=== PATIENT | male | born 1975 | race Caucasian/White ===

== ENCOUNTER 2017-04-08 21:17 | Emergency (ER) | payer OTHER ==
[2017-04-08] MEDS ORDERED: LIDOCAINE 4%/TETRACAINE 0.5%/EPI 0.18% 5 ML TOPICAL SOLN TOP ONE (21:53)
[2017-04-08] MEDS ORDERED: DIPH/PERTUSS(ACELL)/TETANUS VAC/PF 0.5 ML SYR (>=10YO) IM ONE (21:53)
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
[2017-04-09] MEDS ORDERED: HYDROMORPHONE HCL INJ/PF 2 MG/ML AMPULE IV ONE (00:09)
[2017-04-09] MEDS ORDERED: LORAZEPAM INJ 2 MG/1 ML VIAL IV ONE (00:10)
[2017-04-09] MEDS ORDERED: IBUPROFEN 800 MG TABLET PO ONE (00:20)
[2017-04-09] MEDS ORDERED: CYCLOBENZAPRINE HCL 10 MG TABLET PO ONE (00:20)
[2017-04-09 00:51] VITALS: BP 144/94
--- NOTE | 2017-04-09 23:12 | EKG REPORT ---
SEVERITY:- BORDERLINE ECG - SINUS RHYTHM PROBABLE LEFT ATRIAL ABNORMALITY : Confirmed by: Michi Milton 09-Apr-2017 23:12:02
== END 2017-04-09 00:50 | disposition home or self-care (01) ==
LOC: ER 21:17
DX: S09.90XA Unspecified injury of head, initial encounter (principal); S01.81XA Laceration without foreign body of other part of head, initial encounter; S16.1XXA Strain of muscle, fascia and tendon at neck level, initial encounter; S39.012A Strain of muscle, fascia and tendon of lower back, initial encounter; S20.212A Contusion of left front wall of thorax, initial encounter; M54.2 Cervicalgia; V87.7XXA Person injured in collision between other specified motor vehicles (traffic), initial encounter; F17.200 Nicotine dependence, unspecified, uncomplicated
CPT/HCPCS: 93005; 99285; 71020; 72110; 70450; 72125; 90715; 93010; L0120; J3490